=== PATIENT | female | born 2005 | race African-American/Black ===

== ENCOUNTER 2023-07-13 01:52 | Emergency (ER) | payer SELFPAY ==
[2023-07-13 01:56] VITALS: BP 115/70; PULSE 90
--- NOTE | 2023-07-13 02:10 | PC.NURSE ---
Security at bedside for changeover.
[2023-07-13 02:18] VITALS: BP 104/73; PULSE 79; RESP 16; TEMP 36.7; O2SAT 99; BMI 22.9
[2023-07-13 02:23] LABS: Hematocrit 34.6 % (37.0-47.0); Hemoglobin 12.5 g/dl (12.0-16.0); Mean Corpuscular HGB Conc 36.1 g/dl (31.0-35.0); Mean Corpuscular Hemoglobin 29.9 pg (27.0-33.0); Mean Corpuscular Volume 82.8 fL (80.0-98.0); Platelet Count 235 X10*3/uL (160-400); Red Blood Count 4.18 X10*6/uL (4.20-5.50); Red Cell Distribution Width 12.4 % (11.0-16.0); White Blood Count 5.2 X10*3/uL (4.8-10.8)
[2023-07-13 02:39] LABS: Alanine Aminotransferase 9 U/L (0-31); Albumin Level 4.3 g/dL (3.5-5.0); Alkaline Phosphatase 69 U/L (39-117); Anion Gap 15 (12-20); Aspartate Amino Transferase 15 U/L (5-31); Bilirubin Total 0.4 mg/dL (0.0-1.0); Blood Urea Nitrogen 10 mg/dL (9-16); COVID-19 Test Negative (Negative); Calcium 9.6 mg/dL (8.4-10.2); Carbon Dioxide 24 mmol/L (22-29); Chloride 105 mmol/L (96-108); Creatinine Clr Calc Pharmacy 102.9; Estimated Glomerular Filt Rate > 60; Ethanol < 10 mg/dL; Glucose Random 88 mg/dL (60-115); IDNOW Serial# 08D9AD1C; Potassium 3.6 mmol/L (3.3-5.1); Sodium 140 mmol/L (135-145); Total Protein 7.5 g/dL (6.5-8.0)
--- NOTE | 2023-07-13 02:52 | MHC.CARE ---
[facility] Counselor John Barlow ([phone]) called to report that Patricia requested to come to the [place] [facility] to speak with the Care Team.John reports not knowing anything about why she felt the need to come to the ER. John would like to be kept in the loop if Pt is to be discharged and returning back to [facility].
[2023-07-13 04:26] VITALS: BP 110/73; PULSE 99; RESP 16; O2SAT 99
[2023-07-13 04:39] LABS: Appearance Urine Clear; Color Urine Dark Yellow; Glucose Urine UA Negative (Negative); Leukocyte Esterase Urine Small (1+) (Negative); Nitrite Urine Negative (Negative); Specific Gravity - Urine <= 1.005 (1.005-1.025); UMIC TRIGGER UACC YES; UPreg QC Valid YES; Urine Blood Large (3+) (Negative); Urine Ketones Negative (Negative); Urine Protein Negative (Neg-Trace)
[2023-07-13 04:40] LABS: Urine Pregnancy NEGATIVE (NEGATIVE)
[2023-07-13 04:44] LABS: Amphetamine Screen Urine Not Detected (Not Detect); Barbiturates, Urine Not Detected (Not Detect); Benzodiazepines Screen Urine Not Detected (Not Detect); Cannabinoid Screen Urine Not Detected (Not Detect); Cocaine Screen Urine Not Detected (Not Detect); Fentanyl, urine Not Detected (Not Detect); Opiate Screen Urine Not Detected (Not Detect); Phencyclidine Screen Urine Not Detected (Not Detect)
[2023-07-13 04:51] LABS: Bacteria Urine None Seen (None Seen); Hyaline Casts Urine 0-2 /LPF (0-2); Squamous Epithelial Cell Urine 0-2 /HPF (0-2); UACC Culture Trigger YES; WBC Urine 0-5 /HPF (0-5)
--- NOTE | 2023-07-13 05:01 | PC.NURSE ---
BIB EMS, she was picked up from Urgent Care which was closed. Reporting SI with self harm, superficial laceration noted to right thigh. Patient is alert and oriented x3, calm and cooperative. Patient was changed over in presence of security, belongings placed in locker 12. Labs drawn per MD orders, 1:[address]
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
--- NOTE | 2023-07-13 08:21 | PC.NURSE ---
Resumed care of patient at 0700. She is currently A/Ox4. She denies SI/HI at this time, stating she is feeling better this morning. She has a home therapist in place, and feels like she is in a better place at this time
--- NOTE | 2023-07-13 10:40 | PC.NURSE ---
CARE TEAM SPEAKING WITH PT
--- NOTE | 2023-07-13 11:41 | MHC.CARE ---
Safety Plan? Patricia will utilize the following crisis hotlines for crisis support:? [facility] Crisis Services: [phone], this crisis team serves all of [facility]. You can call or? you can go to their office, [address], [place].?? [facility] : 14/04 Care and Support Line at [phone]? The National Suicide Prevention Lifeline 988 Safety: Patricia agrees to remove box cutters from room. Patricia will reach out to friend to help manage medications if experiencing intrusive thoughts? ?Reach out to supports if feeling unsafe/dysregulated [email or web address]- [email or web address] Delancey will follow up with current outpatient providers? Dr. Salazar- yola appt scheduled for 07/16/23 Patricia agrees to have someone from campus counseling check in with her? If Patricia feels that she is not improving? or if symptoms worsen, she will report to the [facility] counseling center or return to [facility] Coping strategies: Reading Playing game Place self in settings to provide distractions IE common room, library?
== END 2023-07-13 12:50 | disposition home or self-care (01) ==
PROVIDERS: Emergency Provider Emergency Medicine
DX: F32.A Depression, unspecified (principal); R45.851 Suicidal ideations; F41.9 Anxiety disorder, unspecified; Z79.899 Other long term (current) drug therapy; Z11.52 Encounter for screening for COVID-19
CPT/HCPCS: 36415; 80053; 80307; 81001; 81025; 85027; 87086; 87147; 87635; 99285; S9485

== ENCOUNTER 2023-12-28 21:50 | Emergency (ER) | payer SELFPAY ==
[2023-12-28 21:58] VITALS: BP 109/69; PULSE 98; RESP 16; TEMP 37.2; O2SAT 99; BMI 21.0
--- NOTE | 2023-12-28 22:08 | ED.PSYCH ---
HPI - Psych General Chief Complaint: Psychiatric Symptoms Stated Complaint: SI, abrasions to neck and L forearm, no bleeding Time Seen by Provider: 12/28/23 22:00 Source: patient Mode of arrival: ambulatory Limitations: no limitations History of Present Illness HPI Narrative: Patient comes to the emergency room complaining of suicidal ideation and depression. Patient states that she has superficial lacerations to the neck and to the left forearm. Patient states that she was trying to hurt herself without killing herself. Patient admits that she takes admit medications for anxiety and depression. Patient denies any other injuries. Related Data Allergies Allergy/AdvReac Type Severity Reaction Status Date / Time No Known Allergies Allergy Verified 12/28/23 22:03 Review of Systems Review of Systems: Constitutional : No Weight loss, No Fever, No Chills, No Night Sweats, No Fatigue, No Malaise ENT/Mouth : No Hearing loss, No Ear Pain, No Nasal Congestion, No Sinus Pain, No Hoarseness, No sore throat, No Rhinorrhea, No Swallowing Difficulty Eyes: No Eye Pain, No Swelling, No Redness, No Foreign Body, No Discharge, No Vision Changes Cardiovascular : No Chest Pain, No SOB, No Dyspnea on Exertion, No Orthopnea, No Edema, No Palpitations Respiratory : No Cough, No Sputum, No Wheezing, No Smoke Exposure, No Dyspnea Gastrointestinal : No Nausea, No Vomiting, No Diarrhea, No Constipation, No abdominal Pain, No Hematochezia, No Melena Genitourinary : no irregular bleeding, No Dysuria, No Urinary Frequency, No Hematuria, No Urinary Incontinence, No Urgency, No Flank Pain, No Urinary Flow Changes, No Hesitancy Musculoskeletal : No joint pain, No Myalgias, No Joint Swelling Skin : No Skin Lesions, No rash Neuro : No Weakness, No Numbness, No Paresthesias, No Loss of Consciousness, No Dizziness, No Headache Psych : Complaining of anxiety and depression, vague suicidal ideation, no intention of killing self, no homicidal ideation Heme/Lymph: No Bruising, No Bleeding,No Lymphadenopathy Endocrine : No Polyuria, No Polydipsia, No Temperature Intolerance PMF Past Medical History Medical History (Updated 12/28/23 @ 22:11 by Ginger Lao MD) Anxiety and depression Social History Social History Alcohol intake: current Alcohol type: hard liquor Physical Exam Vital Signs: Vital Signs: Last Vital Signs Temp 98.9 F 12/28/23 21:58 Pulse 98 12/28/23 21:58 Resp 16 12/28/23 21:58 BP 109/69 12/28/23 21:58 Pulse Ox 99 12/28/23 21:58 O2 Del Method Room Air 12/28/23 21:58 BMI result Body Mass Index 21.0 Const: Other: Appearance: Alert. Oriented X3. No acute distress. Eyes: Pupils equal, round and reactive to light. ENT: Pharynx normal. Neck: Normal inspection. Neck supple. No lymph nodes noted. No crepitus CVS: Normal heart rate and rhythm. Pulses normal. Normal S1 and S2 Respiratory: No respiratory distress. Breath sounds normal. No Wheezing. No rales Abdomen: Soft and nontender. No rigidity. No distention. Skin: Skin warm and dry. Normal skin color. Normal skin turgor. Very superficial scratches to the neck and forearm, no bleeding Extremities: No lower extremity edema. No Lacerations. No Rash Neuro: Oriented X 3. No motor deficit. No sensory deficit. Moving all extremities. No slurred speech. CN 2 through 12 grossly intact Psych: calm, cooperative, normal affect Course Course Course Narrative: -labs pending -care team consult pending -physician observation started at 22:10 Medical Decision Making Differential Diagnosis Differential Diagnoses: The differential diagnosis associated with the presentation includes (Anxiety, depression) Admission/Observation Consideration of admission/observation: Escalation of care including admission/observation considered (Patient is under physician observation waiting to be seen by the care team to determine disposition) Discharge Plan Discharge Clinical Impression: Suicidal ideation Patient Disposition: Still a Patient Print Language: Ukrainian
[2023-12-28 22:32] LABS: Basophils Percent Auto 0.5 % (0-2); Eosinophils Absolute Auto 0.1 X10*3/uL (0.0-0.4); Eosinophils Percent Auto 2.2 % (0-4); Hematocrit 33.8 % (37.0-47.0); Hemoglobin 12.5 g/dl (12.0-16.0); Imm Gran Abs Auto 0.01 X10*3/uL (0.00-0.03); Imm Gran Pct Auto 0.2 % (0.0-0.4); Lymphocytes Absolute Auto 2.2 X10*3/uL (1.2-4.9); Lymphocytes Percent Auto 34.7 % (20-40); MANUAL DIFF FLAG NO; Mean Corpuscular Hemoglobin 31.1 pg (27.0-33.0); Mean Corpuscular Volume 84.1 fL (80.0-98.0); Mean Platelet Volume 10.2 fL (9.4-12.3); Monocytes Absolute Auto 0.6 X10*3/uL (0.1-1.2); Monocytes Percent Auto 10.3 % (2-11); Neutrophils Absolute Auto 3.3 x10*3/uL (2.0-8.3); Neutrophils Percent Auto 52.1 % (45-73); Platelet Count 230 X10*3/uL (160-400); Red Blood Count 4.02 X10*6/uL (4.20-5.50); Red Cell Distribution Width 11.9 % (11.0-16.0); White Blood Count 6.2 X10*3/uL (4.8-10.8)
[2023-12-28 22:34] LABS: Appearance Urine Cloudy; Color Urine Dark Yellow; Glucose Urine UA Negative (Negative); Leukocyte Esterase Urine Trace (Negative); Nitrite Urine Negative (Negative); Specific Gravity - Urine 1.025 (1.005-1.025); UMIC TRIGGER UACC YES; Urine Blood Negative (Negative); Urine Ketones 15 mg/dL (Negative); Urine Pregnancy NEGATIVE (NEGATIVE); Urine Protein 100 (2+) mg/dL (Neg-Trace)
[2023-12-28 22:35] LABS: UPreg QC Valid YES
[2023-12-28 22:53] LABS: Amphetamine Screen Urine Not Detected (Not Detect); Barbiturates, Urine Not Detected (Not Detect); Benzodiazepines Screen Urine Not Detected (Not Detect); Cannabinoid Screen Urine Not Detected (Not Detect); Cocaine Screen Urine Not Detected (Not Detect); Fentanyl, urine Not Detected (Not Detect); Opiate Screen Urine Not Detected (Not Detect); Phencyclidine Screen Urine Not Detected (Not Detect)
[2023-12-28 22:53] LABS: Alanine Aminotransferase 7 U/L (0-31); Albumin Level 4.2 g/dL (3.5-5.0); Alkaline Phosphatase 65 U/L (39-117); Anion Gap 11 (12-20); Aspartate Amino Transferase 15 U/L (5-31); Bilirubin Direct 0.3 mg/dL (0.0-0.5); Bilirubin Total 0.5 mg/dL (0.0-1.0); Blood Urea Nitrogen 15 mg/dL (9-16); Calcium 9.7 mg/dL (8.4-10.2); Carbon Dioxide 25 mmol/L (22-29); Chloride 107 mmol/L (96-108); Creatinine Clr Calc Pharmacy 63.9; Estimated Glomerular Filt Rate > 60; Ethanol < 10 mg/dL; Glucose Random 90 mg/dL (60-115); Potassium 3.8 mmol/L (3.3-5.1); Sodium 139 mmol/L (135-145); Total Protein 7.7 g/dL (6.5-8.0)
[2023-12-28 22:55] LABS: Bacteria Urine 4+ (None Seen); Other Crystals Urine Present; RBC Urine 0-2 /HPF (0-2); WBC Urine 0-5 /HPF (0-5)
[2023-12-28] MEDS: LORazepam 1 MG TABLET PO (23:28)
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
[2023-12-29 00:23] VITALS: BP 114/75; PULSE 94; RESP 17; TEMP 36.9; O2SAT 98
[2023-12-29] MEDS: Ibuprofen 400 MG TABLET PO (05:53)
--- NOTE | 2023-12-29 05:57 | PC.NURSE ---
t/w inquired about client harming self in other locations other than what was reported, patient stated no.
[2023-12-29 09:13] VITALS: BP 109/63; PULSE 107; RESP 17; TEMP 37.3; O2SAT 99
[2023-12-29 09:40] LABS: COVID-19 Test Negative (Negative); IDNOW Serial# 152EDE1D
[2023-12-29 12:26] VITALS: BP 125/80; PULSE 91; RESP 16; TEMP 37; O2SAT 99
== END 2023-12-29 12:32 | disposition home or self-care (01) ==
PROVIDERS: Emergency Provider Emergency Medicine
DX: S10.91XA Abrasion of unspecified part of neck, initial encounter (principal); S50.812A Abrasion of left forearm, initial encounter; R45.851 Suicidal ideations; X78.9XXA Intentional self-harm by unspecified sharp object, initial encounter; Y93.9 Activity, unspecified; Y92.9 Unspecified place or not applicable; Y99.8 Other external cause status; Z11.52 Encounter for screening for COVID-19; Z51.81 Encounter for therapeutic drug level monitoring; Z79.899 Other long term (current) drug therapy
CPT/HCPCS: 36415; 80048; 80076; 80307; 81001; 81025; 85025; 87635; 99284; 99285; S9485